=== PATIENT | male | born 1940 | race Caucasian/White ===

== ENCOUNTER 2023-08-03 18:44 | Emergency (ER) | payer OTHER ==
--- OUTSIDE RECORDS SUMMARY | 2023-08-03 18:49 | XMS REPORT | Continuity of Care Document ---
Author Name Unknown Address [address] [place] [address] [facility] Address [address] [place] [address] Care Team Providers Care Supervising Chef Name Role Phone Nan Ybarra MD Primary Care Physician [phone] MOHAN HELM Attending Clinician UnaMAHI Purcell Attending Clinician Unavailable TORSTEN HATHAWAY Attending Clinician Unavailable RUKHSANA KEITA Attending Clinician Unavailab CLAY Lewis Attending Clinician Un available NAN YBARRA Attending Clinician Unavailable HARRIS JARA Attending Clinician Unava ilable [id number] Attending Clinician Unavailable MICKEY MCDONALD Attending Clinician Unavailab le LAB90 Attending Clinician Unavailable ROSITA AU Attending Clinician Unavailable [id number] Attending Clinician Unavailable GERARDO EMANUEL Attending Clinician Unavailable MD PAT Attending Clinician Unavailab NOMAN Flor Attending Clinician Unavailab SHERICE Interiano Attending Clinician Torsten Vidal MD Attending Clinician [phone] [id number] Attending Clinician Unavailable FL4, [id number] Attending Clinician Unavailable 1, Urology Biopsy Machine Attending Clinician Unavailable 2, Urology Procedure Room Attending Clinician Unavailable Rosita Au PA-C Attending Clinician Sujatha DODSON, Noman Attending Clinician [phone] Amada DODSON, Nan Attending Clinician [phone] Celena DODSON, Uli Jha Attending Clinician [phone] 39, HOLTER Attending Clinician Unavailable RODRICK MENDEZ Attending Clinician Unavailable Payers Payer Name Policy Type Policy Number Effective Date Expirati on Date Source [facility] 7 [id number] 2019 00:00:00 Problems Condition Name Condition Details Condition Category Status Onset Date Resolution Date Last Treatment Date Treating Clinician Comments Source Peripheral vascular disease of extremity Peripheral vascular disease of extremity Disease Active 2022-04 1-07 00:00: 00 Kayy Straussold - Externa l Chronic heart failure with preserved ejection fraction (multi HCC) Chronic heart failure with preserved ejection fraction (multi HCC) Disease Active 1-31 00:00: 00 Kayy Kumarybold - Externa l Prostate cancer (multi HCC) Prostate cancer (multi HCC) Disease Active 9-09 00:00: 00 Kayy Kumarybold - Externa l History of basal cell carcinoma of skin History of basal cell carcinoma of skin Disease Active 6- 00:00: 00 Overview: Formattin g of this note might be different from the original. L helical rim Kayy Kumarybold - Externa l Coagulatio n disorder Coagulatio n disorder Disease Active 5-17 00:00: 00 Kayy Sandoval Hx of squamous cell carcinoma Hx of squamous cell carcinoma Disease Active 6 00:00: 00 Overview: Formattin g of this note might be different from the original. 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, partial, right Disease Active 2-03 00:00: 00 Kayy Sandoval - Externa l Allergies, Adverse Reactions, Alerts Allergy Name Allergy Type Status Severity Reaction(s) Onset Date Inactive Date Treating Clinician Comments Source Penicill ins Propensi ty to adverse reaction s Active Hives 09-04 00:00: 00 Kayy Sandoval Penicill ins Propensi ty to adverse reaction s Active Hives 09-04 00:00: 00 Kayy Meehan Externa l Social History Social Habit Start Date Stop Date Quantity Comments Source Sexual orientation 2019-06-29 08:48:57 Heterosexual (finding) Kayy Sandoval - External History of tobacco use Cigarette Smoker Kayy dick - External History SDOH Alcohol Std Drinks Kayy harkins - External History SDOH Alcohol Comment Kayy harley - External Exposure to SARS-CoV-2 (event) Not sure Kayy harkins Gender identity Rachel Sandoval - External Alcohol intake 2023-07-03 00:00:00 2023-07-03 00:00:00 Ex-drinker (finding) Kayy Sandoval - External History of Social function 2022-12-16 00:00:00 2022-12-16 00:00:00 Kayy Sandoval - External Tobacco use and exposure 2022-09-06 00:00:00 2022-09-06 00:00:00 Smokeless tobacco non-user Kayy Sandoval - External History SDOH Alcohol Frequency 2019-05-27 00:00:00 2019-05-27 00:00:00 99 Kayy Sandoval - External History SDOH Alcohol Binge 2019-05-27 00:00:00 2019-05-27 00:00:00 1 Kayy Sandoval - External Sex Assigned At 1940 00:00:00 1940 00:00:00 M Kayy Sandoval - External Smoking Status Start Date Stop Date Source Ex-smoker 2022-09-06 00:00:2022-09-06 00:00:00 Blanca Rajput Medications Ordered Medication Name Filled Medication Name Start Date Stop Date Current Medication? Ordering Clinician Indication Dosage Frequency Signature (SIG) Comments Components Source Aspirin EC 81 MG oral Tablet Delayed Response 07-02 15:56: 37 Yes 81mg Take 1 tablet (81 mg total) by mouth daily. Kayy pedro Midodrine HCl 2.5 MG oral Tablet 07-02 15:56: 37 Yes 2.5mg Take 1 tablet (2.5 mg total) by mouth daily. Kayy pedro Aspirin EC 81 MG oral Tablet Delayed Response 06-22 11:55: 56 Yes 81mg Take 1 tablet (81 mg total) by mouth daily. Kayy pedro Midodrine HCl 2.5 MG oral Tablet 06-22 11:55: 56 Yes 2.5mg Take 1 tablet (2.5 mg total) by mouth daily. Kayy pedro Midodrine HCl 2.5 MG oral Tablet 06-21 14:46: 54 Yes 2.5mg Take 1 tablet (2.5 mg total) by mouth daily. Kayy pedro Aspirin EC 81 MG oral Tablet Delayed Response 06-21 14:07: 45 Yes 81mg Take 1 tablet (81 mg total) by mouth daily. Kayy pedro Aspirin EC 81 MG oral Tablet Delayed Response 06-12 08:53: 05 Yes 81mg Take 1 tablet (81 mg total) by mouth daily. Kayy pedro Clonidine HCl (CATAPRES) 0.1 MG oral Tablet 05-31 00:00: 00 Yes Take one pill daily as needed for SBP above 180. Kayy pedro Midodrine HCl 5 MG oral Tablet 05-15 00:00: 00 06-21 00:00 :00 No 5mg Take 1 tablet (5 mg total) by mouth daily. Kayy pedro Aspirin EC 81 MG oral Tablet Delayed Response 2022-04 14:17: 32 Yes 81mg Take 1 tablet (81 mg total) by mouth daily. Kayy pedro Midodrine HCl 2.5 MG oral Tablet 2022-04 00:00: 00 06-21 00:00 :00 No Take one pill once you wake up every day. Kayy pedro Aspirin EC 81 MG oral Tablet Delayed Response 2022-04 11:18: 02 Yes 81mg Take 1 tablet (81 mg total) by mouth daily. Kayy pedro Fludrocorti sone Acetate 0.1 MG oral Tablet 2022-04 00:00: 00 Yes [id number] .1mg Take 1 tablet (0.1 mg total) by mouth daily. Kayy pedro Aspirin EC 81 MG oral Tablet Delayed Response 12-16 15:45: 36 Yes 81mg Take 1 tablet (81 mg total) by mouth daily. Kayy pedro Aspirin EC 81 MG oral Tablet Delayed Response 12-13 11:09: 22 Yes 81mg Take 1 tablet (81 mg total) by mouth daily. Kayy pedro Furosemide (LASIX) 20 MG oral Tablet 11-09 00:00: 00 Yes Take one tab by mouth daily as needed for swelling Kayy pedro Midodrine HCl 2.5 MG oral Tablet 11-09 00:00: 00 01-25 00:00 :00 No Take one half tab once a day early in the morning Kayy pedro Aspirin EC 81 MG oral Tablet Delayed Response 09-22 11:22: 33 Yes 81mg Take 1 tablet (81 mg total) by mouth daily Kayy pedro CarbidopaDominique evodopa (Sinemet) 25-100 MG oral Tablet 09-22 00:00: 00 Yes [id number] 2{tbl} Take 2 tablets by mouth 2 times daily Kayy pedro Atropine Sulfate 1 % ophthalmic Solution 09-22 00:00: [id number] 1-2 drops twice a day under the tongue for drooling Kayy pedro Aspirin EC 81 MG oral Tablet Delayed Response 5-16 11:19: 30 Yes 81mg Take 1 tablet (81 mg total) by mouth daily Kayy pedro Midodrine HCl 5 MG oral Tablet 4-17 00:00: 00 Yes TAKE ONE TABLET BY MOUTH EVERY MORNING Kayy pedro Rosuvastati n Calcium 20 MG oral Tablet 3-16 00:00: 00 Yes [id number] TAKE ONE TABLET BY MOUTH EVERY DAY Kayy pedro Aspirin EC 81 MG oral Tablet Delayed Response 2-28 11:50: 26 Yes 81mg Take 81 mg by mouth daily Kayy pedro Aspirin EC 81 MG oral Tablet Delayed Response -24 11:01: 42 Yes 81mg Take 81 mg by mouth daily Kayy pedro Carbidopa-L evodopa (Sinemet) 25-100 MG oral Tablet -24 00:00: 00 09-22 00:00 :00 No [id number] 1 tablet PO twice daily Kayy pedro Midodrine HCl 5 MG oral Tablet 2021-04 2-05 00:00: 00 Yes TAKE ONE TABLET BY MOUTH EVERY MORNING Kayy pedro Aspirin EC 81 MG oral Tablet Delayed Response 2021-04 0-25 10:13: 32 Yes 81mg Take 81 mg by mouth daily Kayy pedro Aspirin EC 81 MG oral Tablet Delayed Response -23 10:18: 02 Yes 81mg Take 81 mg by mouth daily Kayy pedro Carbidopa-L evodopa (Sinemet) 25-100 MG oral Tablet -23 00:00: 00 05-17 00:00 :00 No [id number] 1 tablet PO twice daily Kayy pedro Aspirin EC 81 MG oral Tablet Delayed Response -17 10:44: 12 Yes 81mg Take 81 mg by mouth daily Kayy Sandoval Tdap (ADACEL) 5-2-15.5 LF-MCG/0.5 intramuscul ar Suspension -17 00:00: 00 06-22 00:00 :00 No [id number] Administer One Kayy pedro Rosuvastati n Calcium 20 MG oral Tablet 08-25 00:00: 00 Yes [id number] TAKE ONE TABLET BY MOUTH EVERY DAY Kayy pedro Aspirin EC 81 MG oral Tablet Delayed Response 07-13 11:05: 23 Yes 81mg Take 81 mg by mouth daily Kayy Sandoval Carbidopa-Mayela evodopa (Sinemet) 25-100 MG oral Tablet 07-13 00:00: 00 01-14 00:00 :00 No 1 tablet PO twice daily for 10 days, then increase to TID Kayy pedro Midodrine HCl 5 MG oral Tablet 06-23 00:00: 00 Yes 5mg Take 1 tablet (5 mg total) by mouth every morning Kayy epdro Aspirin EC 81 MG oral Tablet Delayed Response 06-22 11:55: 10 Yes 81mg Take 81 mg by mouth daily Kayy Sandoval Aspirin EC 81 MG oral Tablet Delayed Response 2020-04 15:15: 20 Yes 81mg Take 81 mg by mouth daily Kayy Sandoval Midodrine HCl 5 MG oral Tablet 2020-04 00:00: 00 Yes 5mg Take 1 tablet (5 mg total) by mouth 2 times daily Kayy Sandoval Aspirin EC 81 MG oral Tablet Delayed Response 10-22 08:19: 54 Yes 81mg Take 81 mg by mouth Kayy Sandoval Mupirocin (Bactroban) 2 % apply externally Ointment 10-22 00:00: 00 06-22 00:00 :00 No Apply to wound bid x 2 weeks Kayy pedro Triamcinolo ne Acetonide 0.1 % apply externally Cream 09-17 00:00: 00 Yes [id number] Apply topically BID to affected area for no more than 14 days Kayy Sandoval Rosuvastati n Calcium (Crestor) 20 MG oral Tablet 09-17 00:00: 00 Yes [id number] 20mg Take 1 tablet (20 mg total) by mouth daily Kayy Sandoval Zoster Vac Recomb Adjuvanted 50 MCG/0.5ML intramuscul ar Recon Susp 09-17 00:00: 00 03-31 00:00 :00 No [id number] One dose now. Second dose given two to six months AFTER first dose. Kayy Sandoval Midodrine HCl 5 MG oral Tablet 08-24 00:00: 00 Yes TAKE ONE TABLET BY MOUTH TWICE A DAY Kayy Sandoval Immunizations Ordered Immunization Name Filled Immunization Name Date Status Comments Source Influenza Virus Vaccine, Quadrivalent, High Dose, Age 65 And Up 2022-02-15 00:00:00 Completed Kayy Sandoval - External Influenza Virus Vaccine, Quadrivalent, High Dose, Age 65 And Up 2022-02-15 00:00:00 Completed Kayy Setorin - External Influenza Virus Vaccine, Quadrivalent, High Dose, Age 65 And Up 2022-02-15 00:00:00 Completed Kayy Sandoval - External Influenza Virus Vaccine, Quadrivalent, High Dose, Age 65 And Up 2022-02-15 00:00:00 Completed Kayy Kumarybold - External Influenza Virus Vaccine, Quadrivalent, High Dose, Age 65 And Up 2022-02-15 00:00:00 Completed Kayy Sandoval - External Influenza Virus Vaccine, Quadrivalent, High Dose, Age 65 And Up 2022-02-15 00:00:00 Completed Kayy Seybold - External Influenza Virus Vaccine, Quadrivalent, High Dose, Age 65 And Up 2022-02-15 00:00:00 Completed Kayy Sandoval - External Covid-19 Vaccine (Corindus), Mrna-lnp, King Protein, Pf, 30mcg/0.3ml,IM 2021-04-21 00:00:00 Completed Kayy Sehollyold Covid-19 Vaccine (Corindus), Mrna-lnp, King Protein, Pf, 30mcg/0.3ml,IM 2021-04-21 00:00:00 Completed Kayy Seybold Covid-19 Vaccine (Corindus), Mrna-lnp, King Protein, Pf, 30mcg/0.3ml,IM 2021-04-21 00:00:00 Completed Kayy Sehollyold - External Covid-19 Vaccine (Corindus), Mrna-lnp, King Protein, Pf, 30mcg/0.3ml,IM 2021-04-21 00:00:00 Completed Kayy Seybold - External Covid-19 Vaccine (Pfizer), Mrna-lnp, King Protein, Pf, 30mcg/0.3ml,IM 2021-04-21 00:00:00 Completed Kayy Seybold - External Covid-19 Vaccine (Pfizer), Mrna-lnp, King Protein, Pf, 30mcg/0.3ml,IM 2021-04-21 00:00:00 Completed Kayy Seybold - External Covid-19 Vaccine (Pfizer), Mrna-lnp, King Protein, Pf, 30mcg/0.3ml,IM 2021-04-21 00:00:00 Completed Kayy Seybold - External Covid-19 Vaccine (Pfizer), Mrna-lnp, King Protein, Pf, 30mcg/0.3ml,IM 2021-04-21 00:00:00 Completed Kayy Seybold - External Covid-19 Vaccine (Pfizer), Mrna-lnp, King Protein, Pf, 30mcg/0.3ml,IM 2021-04-21 00:00:00 Completed Kayy Seybold - External Covid-19 Vaccine (Pfizer), Mrna-lnp, King Protein, Pf, 30mcg/0.3ml,IM 2021-04-21 00:00:00 Completed Kayy Seybold - External Covid-19 Vaccine (Pfizer), Mrna-lnp, King Protein, Pf, 30mcg/0.3ml,IM 2021-04-21 00:00:00 Completed Kayy Seybold Shingles IM (Shingrix) 2020-12-15 00:00:00 Completed Kayy Seybold Shingles IM (Shingrix) 2020-12-15 00:00:00 Completed Kayy Seybold Shingles IM (Shingrix) 2020-12-15 00:00:00 Completed Kayy Seybold - External Shingles IM (Shingrix) 2020-12-15 00:00:00 Completed Kayy Seybold - External Shingles IM (Shingrix) 2020-12-15 00:00:00 Completed Akyy Seybold - External Shingles IM (Shingrix) 2020-12-15 00:00:00 Completed Kayy Seybold - External Shingles IM (Shingrix) 2020-12-15 00:00:00 Completed Kayy Seybold - External Shingles IM (Shingrix) 2020-12-15 00:00:00 Completed Kayy Seybold - External Shingles IM (Shingrix) 2020-12-15 00:00:00 Completed Kayy Seybold - External Shingles IM (Shingrix) 2020-12-15 00:00:00 Completed Kayy Seybold Shingles IM (Shingrix) 2020-12-15 00:00:00 Completed Kayy Seybold - External Shingles IM (Shingrix) 2020-12-15 00:00:00 Completed Kayy Seybold Shingles IM (Shingrix) 2020-12-15 00:00:00 Completed Kayy Seybold Shingles IM (Shingrix) 2020-10-06 00:00:00 Completed Kayy Seybold Shingles IM (Shingrix) 2020-10-06 00:00:00 Completed Kayy Seybold Shingles IM (Shingrix) 2020-10-06 00:00:00 Completed Kayy Seybold - External Shingles IM (Shingrix) 2020-10-06 00:00:00 Completed Kayy Seybold - External Shingles IM (Shingrix) 2020-10-06 00:00:00 Completed Kayy Seybold - External Shingles IM (Shingrix) 2020-10-06 00:00:00 Completed Kayy Seybold - External Shingles IM (Shingrix) 2020-10-06 00:00:00 Completed Kayy Seybold - External Shingles IM (Shingrix) 2020-10-06 00:00:00 Completed Kayy Seybold - External Shingles IM (Shingrix) 2020-10-06 00:00:00 Completed Kayy Seybold - External Shingles IM (Shingrix) 2020-10-06 00:00:00 Completed Kayy Seybold Shingles IM (Shingrix) 2020-10-06 00:00:00 Completed Kayy Seybold - External Shingles IM (Shingrix) 2020-10-06 00:00:00 Completed Kayy Seybold Shingles IM (Shingrix) 2020-10-06 00:00:00 Completed Kayy Seybold Pneumococcal Vaccine, Polysaccharide 2020-09-17 00:00:00 Completed Kayy Seybold Pneumococcal Vaccine, Polysaccharide 2020-09-17 00:00:00 Completed Kayy Seybold Pneumococcal Vaccine, Polysaccharide 2020-09-17 00:00:00 Completed Kayy Seybold - External Pneumococcal Vaccine, Polysaccharide 2020-09-17 00:00:00 Completed Kayy Seybold - External Pneumococcal Vaccine, Polysaccharide 2020-09-17 00:00:00 Completed Kayy Seybold - External Pneumococcal Vaccine, Polysaccharide 2020-09-17 00:00:00 Completed Kayy Seybold - External Pneumococcal Vaccine, Polysaccharide 2020-09-17 00:00:00 Completed Kayy Seybold - External Pneumococcal Vaccine, Polysaccharide 2020-09-17 00:00:00 Completed Kayy Seybold - External Pneumococcal Vaccine, Polysaccharide 2020-09-17 00:00:00 Completed Kayy Seybold Pneumococcal Vaccine, Polysaccharide 2020-09-17 00:00:00 Completed Kayy Seybold - External Pneumococcal Vaccine, Polysaccharide 2020-09-17 00:00:00 Completed Kayy Seybold - External Pneumococcal Vaccine, Polysaccharide 2020-09-17 00:00:00 Completed Kayy Seybold Pneumococcal Vaccine, Polysaccharide 2020-09-17 00:00:00 Completed Kayy Seybold Covid-19 Vaccine Moderna (Spikevax), Mrna-lnp, King Protein, Pf 2020-07-23 00:00:00 Completed Kayy Seybold Covid-19 Vaccine Moderna (Spikevax), Mrna-lnp, King Protein, Pf 2020-07-23 00:00:00 Completed Kayy Seybold Covid-19 Vaccine Moderna (Spikevax), Mrna-lnp, King Protein, Pf 2020-07-23 00:00:00 Completed Kayy Seybold - External Covid-19 Vaccine Moderna (Spikevax), Mrna-lnp, King Protein, Pf 2020-07-23 00:00:00 Completed Kayy Seybold - External Covid-19 Vaccine Moderna (Spikevax), Mrna-lnp, King Protein, Pf 2020-07-23 00:00:00 Completed Kayy Seybold - External Covid-19 Vaccine Moderna (Spikevax), Mrna-lnp, King Protein, Pf 2020-07-23 00:00:00 Completed Kayy Seybold - External Covid-19 Vaccine Moderna (Spikevax), Mrna-lnp, King Protein, Pf 2020-07-23 00:00:00 Completed Kayy Seybold - External Covid-19 Vaccine Moderna (Spikevax), Mrna-lnp, King Protein, Pf 2020-07-23 00:00:00 Completed Kayy Seybold - External Covid-19 Vaccine (Moderna), Mrna-lnp, King Protein, Pf, 100 Mcg/0.5ml,IM 2020-07-23 00:00:00 Completed Kayy Seybold Covid-19 Vaccine Moderna (Spikevax), Mrna-lnp, King Protein, Pf 2020-07-23 00:00:00 Completed Kayy Seybold - External Covid-19 Vaccine Moderna (Spikevax), Mrna-lnp, King Protein, Pf 2020-07-23 00:00:00 Completed Kayy Seybold - External Covid-19 Vaccine (Moderna), Mrna-lnp, King Protein, Pf, 100 Mcg/0.5ml,IM 2020-07-23 00:00:00 Completed Kayy Seybold Covid-19 Vaccine Moderna (Spikevax), Mrna-lnp, King Protein, Pf 2020-07-23 00:00:00 Completed Kayy Seybold Covid-19 Vaccine Moderna (Spikevax), Mrna-lnp, King Protein, Pf 2020-06-25 00:00:00 Completed Kayy Seybold Covid-19 Vaccine Moderna (Spikevax), Mrna-lnp, King Protein, Pf 2020-06-25 00:00:00 Completed Kayy Seybold Covid-19 Vaccine Moderna (Spikevax), Mrna-lnp, King Protein, Pf 2020-06-25 00:00:00 Completed Kayy Seybold - External Covid-19 Vaccine Moderna (Spikevax), Mrna-lnp, King Protein, Pf 2020-06-25 00:00:00 Completed Kayy Seybold - External Covid-19 Vaccine Moderna (Spikevax), Mrna-lnp, King Protein, Pf 2020-06-25 00:00:00 Completed Kayy Seybold - External Covid-19 Vaccine Moderna (Spikevax), Mrna-lnp, King Protein, Pf 2020-06-25 00:00:00 Completed Kayy Seybold - External Covid-19 Vaccine Moderna (Spikevax), Mrna-lnp, King Protein, Pf 2020-06-25 00:00:00 Completed Kayy Seybold - External Covid-19 Vaccine Moderna (Spikevax), Mrna-lnp, King Protein, Pf 2020-06-25 00:00:00 Completed Kayy Seybold - External Covid-19 Vaccine (Moderna), Mrna-lnp, King Protein, Pf, 100 Mcg/0.5ml,IM 2020-06-25 00:00:00 Completed Kayy Seybold Covid-19 Vaccine Moderna (Spikevax), Mrna-lnp, King Protein, Pf 2020-06-25 00:00:00 Completed Kayy Seybold - External Covid-19 Vaccine Moderna (Spikevax), Mrna-lnp, King Protein, Pf 2020-06-25 00:00:00 Completed Kayy Seybold - External Covid-19 Vaccine (Moderna), Mrna-lnp, King Protein, Pf, 100 Mcg/0.5ml,IM 2020-06-25 00:00:00 Completed Kayy Seybold Covid-19 Vaccine Moderna (Spikevax), Mrna-lnp, King Protein, Pf 2020-06-25 00:00:00 Completed Kayy Seybold Influenza Virus Vaccine, Quadrivalent, High Dose, Age 65 And Up 2020-01-20 00:00:00 Completed Kayy Seybold Influenza Virus Vaccine, Quadrivalent, High Dose, Age 65 And Up 2020-01-20 00:00:00 Completed Kayy Seybold Influenza Virus Vaccine, Quadrivalent, High Dose, Age 65 And Up 2020-01-20 00:00:00 Completed Kayy Seybold - External Influenza Virus Vaccine, Quadrivalent, High Dose, Age 65 And Up 2020-01-20 00:00:00 Completed Kayy Seybold - External Influenza Virus Vaccine, Quadrivalent, High Dose, Age 65 And Up 2020-01-20 00:00:00 Completed Kayy Kumarybold - External Influenza Virus Vaccine, Quadrivalent, High Dose, Age 65 And Up 2020-01-20 00:00:00 Completed Kayy Seybold - External Influenza Virus Vaccine, Quadrivalent, High Dose, Age 65 And Up 2020-01-20 00:00:00 Completed Kayy Seybold - External Influenza Virus Vaccine, Quadrivalent, High Dose, Age 65 And Up 2020-01-20 00:00:00 Completed Kayy Seybold - External Influenza Virus Vaccine, Quadrivalent, High Dose, Age 65 And Up 2020-01-20 00:00:00 Completed Kayy Kumarybold Influenza Virus Vaccine, Quadrivalent, High Dose, Age 65 And Up 2020-01-20 00:00:00 Completed Kayy Kumarybold - External Influenza Virus Vaccine, Quadrivalent, High Dose, Age 65 And Up 2020-01-20 00:00:00 Completed Kayy Kumarybold - External Influenza Virus Vaccine, Quadrivalent, High Dose, Age 65 And Up 2020-01-20 00:00:00 Completed Kayy Seybold Influenza Virus Vaccine, Quadrivalent, High Dose, Age 65 And Up 2020-01-20 00:00:00 Completed Kayyflorence Straussold Influenza Virus Vaccine, Quadrivalent, High Dose, Age 65 And Up Unknown Completed Kayy moreno - External Covid-19 Vaccine Moderna (Spikevax), Mrna-lnp, King Protein, Pf Unknown [facility] Moderna (Spikevax), Mrna-lnp, King Protein, Pf Unknown Completed Kayy Sandoval - External Pneumococcal Vaccine, Polysaccharide Unknown Completed Kayy Tompkins d - External Shingles IM (Shingrix) Unknown Completed Kayy Sandoval - External Shingles IM (Shingrix) Unknown Completed Kayy Sandoval - External Covid-19 Vaccine (Pfizer), Mrna-lnp, King Protein, Pf, 30mcg/0.3ml,IM Unknown [facility], Quadrivalent, High Dose, Age 65 And Up Unknown Completed [facility] eybold - External Influenza Virus Vaccine, Quadrivalent, High Dose, Age 65 And Up Unknown [facility] Moderna (Spikevax), Mrna-lnp, King Protein, Pf Unknown Completed [facility] - External Covid-19 Vaccine Moderna (Spikevax), Mrna-lnp, King Protein, Pf Unknown Completed [facility] - External Pneumococcal Vaccine, Polysaccharide Unknown [facility] (Shingrix) Unknown Completed [facility] - External Covid-19 Vaccine (Pfizer), Mrna-lnp, King Protein, Pf, 30mcg/0.3ml,IM Unknown [facility] Influenza Virus Vaccine, Quadrivalent, High Dose, Age 65 And Up Unknown [facility] Influenza Virus Vaccine, Quadrivalent, High Dose, Age 65 And Up Unknown Completed [facility] External Covid-19 Vaccine Moderna (Spikevax), Mrna-lnp, King Protein, Pf Unknown Completed [facility] - External Covid-19 Vaccine Moderna (Spikevax), Mrna-lnp, King Protein, Pf Unknown Completed [facility] - External Pneumococcal Vaccine, Polysaccharide Unknown [facility] ([facility]hingrix[facility] Unknown Completed [facility] - External Covid-19 Vaccine (Pfizer), Mrna-lnp, King Protein, Pf, 30mcg/0.3ml,IM Unknown [facility] Influenza Virus Vaccine, Quadrivalent, High Dose, Age 65 And Up Unknown Completed [facility] eybold - External Influenza Virus Vaccine, Quadrivalent, High Dose, Age 65 And Up Unknown Completed [facility] - External Covid-19 Vaccine Moderna (Spikevax), Mrna-lnp, King Protein, Pf Unknown Completed [facility] - External Covid-19 Vaccine Moderna (Spikevax), Mrna-lnp, King Protein, Pf Unknown Completed [facility] - External Pneumococcal Vaccine, Polysaccharide Unknown [facility] (Shingrix) Unknown Completed [facility] Seybold - External Shingles IM (Shingrix) Unknown Completed [facility] - External Covid-19 Vaccine (Pfizer), Mrna-lnp, King Protein, Pf, 30mcg/0.3ml,IM Unknown Completed [facility] - External Influenza Virus Vaccine, Quadrivalent, High Dose, Age 65 And Up Unknown Completed [facility] eybold - External Influenza Virus Vaccine, Quadrivalent, High Dose, Age 65 And Up Unknown Com[facility] [facility] - External Covid-19 Vaccine Moderna (Spikevax), Mrna-lnp, King Protein, Pf Unknown Completed [facility] External Covid-19 Vaccine Moderna (Spikevax), Mrna-lnp, King Protein, Pf Unknown Completed [facility] - External Pneumococcal Vaccine, Polysaccharide Unknown [facility] (Shingrix) Unknown Completed [facility] - External Covid-19 Vaccine (Pfizer), Mrna-lnp, King Protein, Pf, 30mcg/0.3ml,IM Unknown Completed [facility] - External Influenza Virus Vaccine, Quadrivalent, High Dose, Age 65 And Up Unknown Completed [facility] - External Influenza Virus Vaccine, Quadrivalent, High Dose, Age 65 And Up Unknown [facility] Vaccine Moderna (Spikevax), Mrna-lnp, King Protein, Pf Unknown Completed [facility] - External Covid-19 Vaccine Moderna (Spikevax), Mrna-lnp, King Protein, Pf Unknown Completed [facility] - External Pneumococcal Vaccine, Polysaccharide Unknown [facility] Shingles [facility] (Shingrix) Unknown Completed [facility] - External Shingles IM (Shingrix) Unknown Completed [facility] - External Covid-19 Vaccine (Pfizer), Mrna-lnp, King Protein, Pf, 30mcg/0.3ml,IM Unknown Completed [facility] - External Influenza Virus Vaccine, Quadrivalent, High Dose, Age 65 And Up Unknown Completed Kayy Najera [facility] - External Vital Signs Vital Name Observation Time Observation Value Comments S juliana Systolic blood pressure 2023-07-03 21:34:00 190 mm[Hg] Kayy [facility] - External Diastolic blood pressure 2023-07-03 21:34:00 100 mm[Hg] Kayy Seybo ld - External Heart rate 2023-07-03 20:56:00 64 /min Kelse y [facility] - External Body temperature 2023-07-03 20:56:00 36.44 Sana Kayy [facility] - External Respiratory rate 2023-07-03 20:56:00 16 /min Kayy [facility] - External Body height 2023-07-03 20:56:00 172.7 cm Rachel ey [facility] - External Oxygen saturation in Arterial blood by Pulse oximetry 2023-07-03 20:56:00 96 /min Kayy Seybo ld - External Systolic blood pressure 2023-06-23 17:56:00 138 mm[Hg] Kayy Seybo ld - External Diastolic blood pressure 2023-06-23 17:56:00 88 mm[Hg] Kayy Seybo ld - External Heart rate 2023-06-23 17:56:00 56 /min Kgse y [facility] - External Body temperature 2023-06-23 17:56:00 36.72 Sana Kayy [facility] - External Respiratory rate 2023-06-23 17:56:00 17 /min Kayy [facility] - External Body height 2023-06-23 17:56:00 172.7 cm Rachel ey [facility] - External Body weight 2023-06-23 17:56:00 72.576 kg Rachel ey [facility] - External BMI 2023-06-23 17:56:00 24.33 kg/m2 Rachel ey [facility] - External Systolic blood pressure 2023-06-21 20:02:00 174 mm[Hg] Kayy Seybo ld - External Diastolic blood pressure 2023-06-21 20:02:00 92 mm[Hg] Kayy Seybo ld - External Heart rate 2023-06-21 20:02:00 66 /min Kelse y [facility] - External Body temperature 2023-06-21 20:02:00 36.44 Sana Kayy [facility] - External Respiratory rate 2023-06-21 20:02:00 17 /min Kayy [facility] - External Body height 2023-06-21 20:02:00 172.7 cm Rachel ey [facility] - External Oxygen saturation in Arterial blood by Pulse oximetry 2023-06-21 20:02:00 95 /min Kayy Seybo ld - External Systolic blood pressure 2023-06-12 14:53:00 162 mm[Hg] Kayy Seybo ld - External Diastolic blood pressure 2023-06-12 14:53:00 98 mm[Hg] Kayy Seybo ld - External Heart rate 2023-06-12 14:53:00 61 /min Kelse y [facility] - External Body temperature 2023-06-12 14:53:00 36.56 Sana Kayy [facility] - External Respiratory rate 2023-06-12 14:53:00 18 /min Kayy [facility] - External Body height 2023-06-12 14:53:00 172.7 cm Rachel ey [facility] - External Body weight 2023-06-12 14:53:00 72.576 kg Rachel ey [facility] - External BMI 2023-06-12 14:53:00 24.33 kg/m2 Rachel ey [facility] - External Systolic blood pressure 2023-04-05 20:42:00 202 mm[Hg] Kayy Seybo ld - External Diastolic blood pressure 2023-04-05 20:42:00 104 mm[Hg] Kayy Seybo ld - External Heart rate 2023-04-05 20:12:00 62 /min Kelse y [facility] - External Body temperature 2023-04-05 20:12:00 36.5 Sana Kayy [facility] - External Respiratory rate 2023-04-05 20:12:00 15 /min Kayy [facility] - External Body height 2023-04-05 20:12:00 172.7 cm Rachel ey [facility] - External Body weight 2023-04-05 20:12:00 72.576 kg Rachel ey [facility] - External BMI 2023-04-05 20:12:00 24.33 kg/m2 Rachel ey [facility] - External Oxygen saturation in Arterial blood by Pulse oximetry 2023-04-05 20:12:00 97 /min Kayy Seybo ld - External Systolic blood pressure 2022-12-16 20:47:00 142 mm[Hg] Kayy Seybo ld - External Diastolic blood pressure 2022-12-16 20:47:00 78 mm[Hg] Kayy Seybo ld - External Heart rate 2022-12-16 20:47:00 68 /min Kelse y [facility] - External Body temperature 2022-12-16 20:47:00 36.78 Sana Kayy [facility] - External Respiratory rate 2022-12-16 20:47:00 18 /min Kayy [facility] - External Body height 2022-12-16 20:47:00 172.7 cm Rachel ey [facility] - External Body weight 2022-12-16 20:47:00 73.936 kg Rachel ey [facility] - External BMI 2022-12-16 20:47:00 24.78 kg/m2 Rachel ey [facility] - External Systolic blood pressure 2022-12-13 16:09:00 199 mm[Hg] Kayy Seybo ld - External Diastolic blood pressure 2022-12-13 16:09:00 103 mm[Hg] Kayy Seybo ld - External Heart rate 2022-12-13 16:09:00 63 /min Kelse y [facility] - External Body temperature 2022-12-13 16:09:00 36.17 Sana Kayy [facility] - External Respiratory rate 2022-12-13 16:09:00 18 /min Kayy [facility] - External Body height 2022-12-13 16:09:00 172.7 cm Rachel ey [facility] - External Body weight 2022-12-13 16:09:00 73.936 kg Rachel ey [facility] - External BMI 2022-12-13 16:09:00 24.78 kg/m2 Rachel ey [facility] - External Systolic blood pressure 2022-09-22 16:37:00 189 mm[Hg] Kayy [facility] - External Diastolic blood pressure 2022-09-22 16:37:00 98 mm[Hg] Kayy [facility] - External Heart rate 2022-09-22 16:24:00 64 /min Kelse y [facility] - External Body temperature 2022-09-22 16:21:00 36.28 Sana Kayy [facility] - External Respiratory rate 2022-09-22 16:21:00 21 /min Kayy [facility] - External Body height 2022-09-22 16:21:00 172.7 cm Rachel ey [facility] - External Systolic blood pressure 2022-09-06 16:19:00 186 mm[Hg] Kayy [facility] ld - External Diastolic blood pressure 2022-09-06 16:19:00 99 mm[Hg] Kayy [facility] ld - External Heart rate 2022-09-06 16:19:00 61 /min Kelse y [facility] - External Body temperature 2022-09-06 16:19:00 36.83 Sana Kayy [facility] - External Respiratory rate 2022-09-06 16:19:00 16 /min Kayy [facility] - External Body height 2022-09-06 16:19:00 172.7 cm Rachel ey [facility] - External Body weight 2022-09-06 16:19:00 72.576 kg wheelchair Rachel ey [facility] - External BMI 2022-09-06 16:19:00 24.33 kg/m2 Rachel ey [facility] - External Systolic blood pressure 2022-06-21 17:50:00 170 mm[Hg] Kayy [facility] ld - External Diastolic blood pressure 2022-06-21 17:50:00 89 mm[Hg] Kayy [facility] ld - External Heart rate 2022-06-21 17:50:00 69 /min Kelse y [facility] - External Body temperature 2022-06-21 17:50:00 36.72 Sana Kayy [facility] - External Respiratory rate 2022-06-21 17:50:00 16 /min Kayy [facility] - External Body height 2022-06-21 17:50:00 172.7 cm Rachel ey [facility] - External Body weight 2022-06-21 17:50:00 72.576 kg Rachel ey [facility] - External BMI 2022-06-21 17:50:00 24.33 kg/m2 Rachel ey [facility] - External Systolic blood pressure 2022-05-17 17:01:00 201 mm[Hg] Kayy [facility] ld - External Diastolic blood pressure 2022-05-17 17:01:00 99 mm[Hg] Kayy [facility] ld - External Heart rate 2022-05-17 17:01:00 64 /min Kelse y [facility] - External Body temperature 2022-05-17 17:01:00 36.94 Sana Kayy [facility] - External Respiratory rate 2022-05-17 17:01:00 16 /min Kayy [facility] - External Body height 2022-05-17 17:01:00 172.7 cm Rachel ey [facility] - External Body weight 2022-05-17 17:01:00 73.483 kg Rachel ey [facility] - External BMI 2022-05-17 17:01:00 24.63 kg/m2 Rachel ey [facility] - External Systolic blood pressure 2022-02-15 15:17:00 166 mm[Hg] Kayy [facility] ld - External Diastolic blood pressure 2022-02-15 15:17:00 94 mm[Hg] Kayy [facility] - External Heart rate 2022-02-15 15:17:00 64 /min Kelse y [facility] - External Body temperature 2022-02-15 15:17:00 36.28 Sana Kayy [facility] - External Respiratory rate 2022-02-15 15:17:00 16 /min Kayy [facility] - External Body height 2022-02-15 15:17:00 172.7 cm Rachel ey [facility] - External Body weight 2022-02-15 15:17:00 71.85 kg Rachel ey [facility] - External BMI 2022-02-15 15:17:00 24.08 kg/m2 Rachel ey [facility] - External Oxygen saturation in Arterial blood by Pulse oximetry 2022-02-15 15:17:00 98 /min Kayy [facility] - External Systolic blood pressure 2022-01-14 15:22:00 152 mm[Hg] Kayy [facility] - External Diastolic blood pressure 2022-01-14 15:22:00 89 mm[Hg] Kayy [facility] - External Heart rate 2022-01-14 15:22:00 64 /min Kelse y [facility] - External Body temperature 2022-01-14 15:18:00 36.39 Sana Kayy [facility] - External Respiratory rate 2022-01-14 15:18:00 18 /min Kayy [facility] - External Body height 2022-01-14 15:18:00 172.7 cm Rachel ey [facility] - External Body weight 2022-01-14 15:18:00 73.483 kg Rachel ey [facility] - External BMI 2022-01-14 15:18:00 24.63 kg/m2 Rachel ey [facility] - External Systolic blood pressure 2021-09-07 15:43:00 112 mm[Hg] Kayy Seybo ld Diastolic blood pressure 2021-09-07 15:43:00 72 mm[Hg] Kayy Seybo ld Heart rate 2021-09-07 15:43:00 63 /min Kelse y [facility] Body temperature 2021-09-07 15:43:00 36.67 Sana Kayy [facility] Respiratory rate 2021-09-07 15:43:00 12 /min Kayy [facility] Body height 2021-09-07 15:43:00 172.7 cm Rachel ey [facility] Body weight 2021-09-07 15:43:00 68.947 kg Rachel ey [facility] BMI 2021-09-07 15:43:00 23.11 kg/m2 Rachel ey [facility] Oxygen saturation in Arterial blood by Pulse oximetry 2021-09-07 15:43:00 97 /min Kayy Seybo ld Systolic blood pressure 2021-07-13 16:03:00 193 mm[Hg] Kayy Sey[facility] ld Diastolic blood pressure 2021-07-13 16:03:00 92 mm[Hg] Kayy Seybo ld Heart rate 2021-07-13 16:03:00 67 /min Kelse y [facility] Body temperature 2021-07-13 16:03:00 36.83 Sana Kayy [facility] Respiratory rate 2021-07-13 16:03:00 21 /min Kayy [facility] Body height 2021-07-13 16:03:00 172.7 cm Rachel ey [facility] Body weight 2021-07-13 16:03:00 73.936 kg Rachel ey [facility] BMI 2021-07-13 16:03:00 24.78 kg/m2 Rachel ey [facility] Systolic blood pressure 2021-06-22 17:53:00 140 mm[Hg] Kayy Seybo ld Diastolic blood pressure 2021-06-22 17:53:00 68 mm[Hg] Kayy Seybo ld Heart rate 2021-06-22 17:53:00 63 /min Kelse y [facility] Body temperature 2021-06-22 17:53:00 36.72 Sana Kayy [facility] Respiratory rate 2021-06-22 17:53:00 16 /min Kayy Kumarybold Body height 2021-06-22 17:53:00 172.7 cm Rachel ey [facility] Body weight 2021-06-22 17:53:00 70.308 kg Rachel ey [facility] BMI 2021-06-22 17:53:00 23.57 kg/m2 Rachel joceline [facility] Procedures Procedure Date / Time Performed Performing Clinicia n Source SACRUM/COCCYX 2022-02-15 16:19:10 Mickey Mcdonald [facility] - External QUANTAFLO 2022-02-15 15:29:13 Mickey Mcdonald [facility] - External Encounters Start Date/Time End Date/Time Encounter Type Admission Type Attending [facility] Care Department Encounter ID Source 2023-11-29 10:25:00 2023-11-29 10:25:00 Outpatient MOHAN HELM [id number] Kayy [facility] 2023-09-25 11:00:00 2023-09-25 11:00:00 Outpatient MAHI GUAMAN [id number] Kayy [facility] 2023-08-22 10:20:00 2023-08-22 10:20:00 Outpatient TORSTEN HATHAWAY [id number] Kayy [facility] 2023-07-27 15:30:00 2023-07-27 15:30:00 Outpatient KAYY CHÁVEZ [id number] Kayy Seybm[facility]elin 2023-07-14 08:00:00 2023-07-14 08:00:00 Outpatient [facility]Y [facility]VEZ [id number] [facility]23-07-14 00:00:00 2023-07-14 00:00:00 Outpatient RUKHSANA KEITA [id number] [facility] 2023-07-13 09:45:00 2023-07-13 09:45:00 Outpatient DARIACLAY Egan KAYY CHÁVEZ [id number] [facility] 2023-07-12 00:00:00 2023-07-12 00:00:00 Outpatient NAN YBARRA KAYY CHÁVEZ [id number] [facility] 2023-07-11 00:00:00 2023-07-11 00:00:00 Outpatient KAYY CHÁVEZ [id number] [facility] 2023-07-07 00:00:00 2023-07-07 00:00:00 [id number] [facility]-03 15:30:00 2023-07-03 15:30:00 Outpatient HARRIS JARA [id number] [facility] 2023-06-23 12:55:00 2023-06-23 12:55:00 Outpatient LAB39 KAYY CHÁVEZ [id number] [facility] 2023-06-23 11:40:00 2023-06-23 11:40:00 Outpatient TORSTEN HATHAWAY [id number] [facility] 2023-06-21 14:00:00 2023-06-21 14:00:00 Outpatient MICKEY MCDONALD [id number] [facility] 2023-06-15 11:15:00 2023-06-15 11:15:00 Outpatient TANMICKEY OBANDO [id number] [facility] 2023-06-15 00:00:00 2023-06-15 00:00:00 Outpatient RUKHSANA KEITA [id number] [facility] 2023-06-13 10:40:00 2023-06-13 10:40:00 Outpatient LAB90 KAYY CHÁVEZ [id number] [facility] 2023-06-12 09:00:00 2023-06-12 09:00:00 Outpatient RUKHSANA KEITA KAYY CHÁVEZ [id number] Kay[facility] 2023-06-08 14:55:00 2023-06-08 14:55:00 Outpatient LAB90 KAYY CHÁVEZ [id number] [facility] 2023-05-31 09:55:00 2023-05-31 09:55:00 Outpatient MOHAN HELM [id number] Kay[facility] 2023-04-25 00:00:00 2023-04-25 00:00:00 Outpatient ROSITA AU [id number] Kayy [facility] 2023-04-25 00:00:00 2023-04-25 00:00:00 Outpatient KAYY CHÁVEZ [id number] Kay[facility] 2023-04-14 00:00:00 2023-04-14 00:00:00 Outpatient ROSITA AU [id number] [facility] 2023-04-05 14:00:00 2023-04-05 14:00:00 [facility]AL[id number] [facility]23-[facility] 00:00:00 2023-03-31 00:00:00 Outpatient KAYY CHÁVEZ [id number] [facility] 2023-03-29 10:15:00 2023-03-29 10:15:00 Outpatient [facility]CDONALD [id number] [facility] 2023-03-13 00:00:00 2023-03-13 00:00:00 Outpatient ROSITA AU [id number] [facility] 2023-03-02 00:00:00 2023-03-02 00:00:00 [facility] [id number] [facility]-28 13:30:00 2023-02-28 13:30:00 Outpatient TRED47 KAYY CHÁVEZ [id number] [facility] 2023-02-28 10:25:00 2023-02-28 10:25:00 Outpatient MOHAN HELM [id number] [facility] 2023-02-28 00:00:00 2023-02-28 00:00:00 Outpatient MOHAN HELM KAYY CHÁVEZ [id number] [facility] 2023-02-24 00:00:00 2023-02-24 00:00:00 Outpatient MAHI GUAMAN KAYY CHÁVEZ [id number] [facility] 2023-02-21 00:00:00 2023-02-21 00:00:00 Outpatient MAHI GUAMAN KAYY CHÁVEZ [id number] [facility] 2023-02-21 00:00:00 2023-02-21 00:00:00 Outpatient MAHI GUAMAN KAYY CHÁVEZ [id number] [facility] 2023-02-08 00:00:00 2023-02-08 00:00:00 Outpatient KAYY CHÁVEZ [id number] [facility] 2023-02-08 00:00:00 2023-02-08 00:00:00 Outpatient MAHI GUAMAN KAYY CHÁVEZ [id number] [facility] 2023-01-25 11:30:00 2023-01-25 11:30:00 Outpatient MAHI GUAMAN KAYY [facility]VEZ [id number] [facility] 2022-12-22 00:00:00 2022-12-22 00:00:00 Outpatient KAYY CHÁVEZ [id number] [facility] 2022-12-16 15:40:00 2022-12-16 15:40:00 Outpatient TORSTEN HATHAWAY [id number] [facility] 2022-12-14 00:00:00 2022-12-14 00:00:00 Outpatient ROSITA AU [id number] [facility] 2022-12-13 11:00:00 2022-12-13 11:00:00 Outpatient ROSITA AU [id number] [facility] 2022-12-08 14:35:00 2022-12-08 14:35:00 Outpatient LABParisa CHÁVEZ [id number] [facility] 2022-11-09 09:40:00 2022-11-09 09:40:00 Outpatient MOHAN HELM KAYY CHÁVEZ [id number] Kay[facility] 2022-11-08 14:40:00 2022-11-08 14:40:00 Outpatient RIVASTORSTEN Talbot KAYY CHÁVEZ [id number] Kay[facility] 2022-11-01 11:30:00 2022-11-01 11:30:00 Outpatient RIVASTORSTEN Talbot KAYY CHÁVEZ [id number] Kay[facility] 2022-10-10 00:00:00 2022-10-10 00:00:00 Outpatient RIVAS TORSTEN CHÁVEZ [id number] [facility] 2022-09-22 11:30:00 2022-09-22 11:30:00 Outpatient MAHI GUAMAN [id number] [facility] 2022-09-06 11:00:00 2022-09-06 11:00:00 Outpatient ROSITA AU [id number] [facility] 2022-08-07 00:00:00 2022-08-07 00:00:00 Outpatient VOLODYMYR MOHAN CHÁVEZ [id number] [facility] 2022-07-07 00:00:00 2022-07-07 00:00:00 Outpatient AMADANAN KAYY CHÁVEZ [id number] [facility] 2022-06-21 11:40:00 2022-06-21 11:40:00 Outpatient TORSTEN HATHAWAY KAYY CHÁVEZ [id number] [facility] 2022-06-16 14:40:00 2022-06-16 14:40:00 Outpatient LAB90 KAYY CHÁVEZ [id number] [facility] 2022-05-24 15:00:00 2022-05-24 15:00:00 Outpatient GERARDO EMANUEL [id number] [facility] 2022-05-20 13:40:00 2022-05-20 13:40:00 Outpatient MOHAN HELM [id number] [facility] 2022-05-18 00:00:00 2022-05-18 00:00:00 Outpatient MOHAN HELM KAYY [id number] [facility] 2022-05-18 00:00:00 2022-05-18 00:00:00 Outpatient MD KAYY GOMEZ [id number] [facility] 2022-05-17 11:00:00 2022-05-17 11:00:00 Outpatient ROSITA AU [id number] [facility] 2022-04-20 10:10:00 2022-04-20 10:10:00 Outpatient MOHAN HELM KAYY CHÁVEZ [id number] [facility] 2022-04-07 14:30:00 2022-04-07 14:30:00 Outpatient RYANMariluz CHÁVEZ [id number] [facility] 2022-04-07 13:40:00 2022-04-07 13:40:00 Outpatient MOHAN HELM KAYY CHÁVEZ [id number] [facility] 2022-04-06 00:00:00 2022-04-06 00:00:00 Outpatient MOHAN HELM KAYY CHÁVEZ [id number] [facility] 2022-03-30 10:30:00 2022-03-30 10:30:00 Outpatient NOMAN BAUTISTA [id number] [facility] 2022-03-26 00:00:00 2022-03-26 00:00:00 Outpatient MOHAN HELM KAYY CHÁVEZ [id number] [facility] 2022-02-15 11:05:00 2022-02-15 11:05:00 Outpatient KAYY CHÁVEZ [id number] [facility] 2022-02-15 10:15:00 2022-02-15 10:15:00 Outpatient MICKEY MCDONALD [id number] [facility] 2022-01-14 10:15:00 2022-01-14 10:15:00 Outpatient ROSITA AU [id number] [facility] 2021-12-31 11:00:00 2021-12-31 11:00:00 Outpatient SHERICE DIAMOND [id number] Kayy Sandoval 2021-12-17 11:50:00 2021-12-17 12:00:00 Office Visit Torsten Hathaway [facility] [id number] Kayy Sandoval 2021-11-29 13:00:00 2021-11-29 13:00:00 Outpatient KAYY KAYY [id number] Kayy Sandoval 2021-11-29 11:00:00 2021-11-29 11:00:00 Outpatient KAYY KAYY [id number] Kayy aSndoval 2021-11-26 15:00:00 2021-11-26 15:00:00 Outpatient KAYY KAYY [id number] Kayy Sandoval 2021-11-26 13:00:00 2021-11-26 13:00:00 Outpatient KAYY KAYY [id number] Kayy Sandoval 2021-11-26 11:30:00 2021-11-26 11:30:00 Outpatient KAYY KAYY [id number] Kayy Sandoval 2021-11-18 15:00:00 2021-11-18 15:00:00 Outpatient KAYY KAYY [id number] Kayy Sandoval 2021-11-18 13:00:00 2021-11-18 13:00:00 Outpatient KAYY KAYY [id number] Kayy Sandoval 2021-11-18 10:40:00 2021-11-18 10:40:00 Outpatient LAB47 KAYY CHÁVEZ [id number] Kayy [facility] 2021-11-12 00:00:00 2021-11-12 00:00:00 Outpatient TORSTEN HATHAWAY KAYY CHÁVEZ [id number] Kayy [facility] 2021-11-09 13:20:00 2021-11-09 13:20:00 Outpatient JOSH4 [id number]-[id number] KAYY CHÁVEZ [id number] Kayy Seybold 2021-11-09 11:00:00 2021-11-09 12:00:00 Office Visit Torsten Hathaway 1, Urology Biopsy Machine 2, Urology Procedure Room [facility] 1.2.840.114 [id number] Kayy Sandoval 2021-10-12 10:15:00 2021-10-12 11:00:00 Office Visit Rosita Au [facility] [id number] [id number] Kayy Sandoval 2021-09-29 10:45:00 2021-09-29 11:00:00 Office Visit Noman Bautista [id number] Kayy mayelin 2021-09-14 00:00:00 2021-09-14 00:00:00 Outpatient TORSTEN HATHAWAY [id number] [facility] 2021-09-14 00:00:00 2021-09-14 00:00:00 Outpatient TORSTEN HATHAWAY [id number] Kayy [facility] 2021-09-12 00:00:00 2021-09-12 00:00:00 Outpatient TORSTEN HATHAWAY [id number] Kay[facility] 2021-09-10 00:00:00 2021-09-10 00:00:00 Outpatient TORSTEN HATHAWAY [id number] Kayy [facility] 2021-09-07 11:20:00 2021-09-07 11:20:00 Outpatient LAB KAYY CHÁVEZ [id number] Kay[facility] 2021-09-07 10:15:00 2021-09-07 11:00:00 Office Visit Nan Ybarra [id number] Kayy Jaime 2021-07-27 10:10:00 2021-07-27 10:10:00 Outpatient TORSTEN HATHAWAY [id number] Kay[facility] 2021-07-13 11:00:00 2021-07-13 11:15:00 Office Visit Uli Dallas [facility] [id number] [id number] Kayy Sandoval 2021-06-24 00:00:00 2021-06-24 00:00:00 Outpatient TORSTEN HATHAWAY KAYY CHÁVEZ [id number] Kayy Sandoval 2021-06-22 12:30:00 2021-06-22 12:30:00 Outpatient LAB39 KAYY CHÁVEZ [id number] Kayy Sandoval 2021-06-22 12:25:00 2021-06-22 12:25:00 Outpatient SDLinda, [id number]-AYM KAYY CHÁVEZ [id number] Kayy Sandoval 2021-06-22 11:40:00 2021-06-22 11:50:00 Office Visit Torsten Hathaway [facility] [id number] [id number] Kayy Sandoval 2021-06-22 00:00:00 2021-06-22 00:00:00 Outpatient VOLODYMYRMOHAN KAYY CHÁVEZ [id number] Kayy Sandoval 2021-05-11 11:10:00 2021-05-11 11:10:00 Outpatient VOLODYMYR MOHAN KAYY CHÁVEZ [id number] Kayy [facility] 2021-03-31 15:00:00 2021-03-31 15:15:00 Office Visit Noman Bautista [id number] [id number] Kayy Jaime 2021-03-26 16:45:00 2021-03-26 16:45:00 Outpatient KAYY CHÁVEZ [id number] Kayy mayelin 2021-03-25 15:45:00 2021-03-25 15:45:00 Outpatient KAYY CHÁVEZ [id number] Kayy torin 2021-03-25 11:30:00 2021-03-25 11:30:00 Outpatient 39, HOLTER KAYYFLORENCE CHÁVEZ [id number] [facility] 2021-03-25 09:10:00 2021-03-25 09:10:00 Outpatient MOHAN HELM KAYY CHÁVEZ [id number] [facility] 2021-01-28 10:53:40 2021-01-28 12:08:03 [facility] [id number] Kayy [facility] 2020-12-30 00:00:00 2020-12-30 00:00:00 Outpatient NOMAN BAUTISTA KAYY CHÁVEZ [id number] Kayy [facility] 2020-12-15 00:00:00 2020-12-15 00:00:00 Outpatient NAN YBARRA KAYY CHÁVEZ [id number] Kayy [facility] 2020-12-02 15:20:00 2020-12-02 15:20:00 Outpatient RODRICK MENDEZ KAYY CHÁVEZ [id number] Kayy [facility] 2020-12-02 13:00:00 2020-12-02 13:00:00 Outpatient RODRICK MENDEZ KAYY CHÁVEZ [id number] [facility] 2018-10-17 18:26:00 2018-10-17 18:26:00 Outpatient E [facility] Results Test Description Test Time Test Comments Results Result Co mments Source Kayy Sandoval - External Notes Date/Time Note Provider Source 2023-07-03 15:56:41 [id number] mPt1/hp2BwgexAfhL anl2A97v6xFbTiUpT97B01qq/pF9906-85-26 T15:56:41 Chief [place] [id number] ZzwlWA0591-50-87Q55:58:56Nurse [id number]. [id number] for patient [id number] NoteLNNARRATIVEFormatted C-CDA narrative textMercyhealth Mercy Hospital[address] [address] [place], [place] [id number] 5033-67-49E97:58:561.2.840.028387.1.7 2.3.15|1.2.840.951878.1.13.131.2.7.2. [id number] [facility] 2023-06-23 11:56:10 sbJW+9yRB02ZxCbXRr1+ 7cPXrFixa1D9bETX7 dW56VZ6gLW4aZW/g0kELpPe6yew6353-03-52 T11:56:10 Chief ComplaintPatient presents withFollow-up6 month follow up Luz Guoectronically signed by Bhumika Perry RMA at 06/23/2023 11:59 AM ZGS13045-4Mzqci ZqtpKX0619-83-00P72:59:48Nurse NoteTXT1.2.840.954622.1.13.131.2.7.2. 291096|[id number] for patient qrzv90809-9Ifphs NoteLNNARRATIVEFormatted C-CDA narrative textMercyhealth Mercy Hospital[address] [place], [place] [id number] 1417-71-52M84:59:481.2.840.976565.1.7 2.3.15|1.2.840.647348.1.13.131.2.7.2. [id number] [facility] 2023-06-21 14:07:49 ybEXG/MuJbOoQw+GpZX4 MzfdKnCkmh8i9di+c xlLQo09sMzgfxSsOw84SpPjFRPQ7066-52-41 T14:07:49 Chief ComplaintPatient presents withEstablish CareRequesting home healthVitals:06/21/23 1402BP: (!) 174/92Side: Right ArmPosition: SITTINGCuff Size: Medium AdultPulse: 66Resp: 17Temp: 97.6 ?F (36.4 ?C)TempSrc: TympanicSpO2: 95%Height: 5' 8" (1.727 m)No other voiced complaints at this time 57321-8Mzxcf QesvPS2471-90-67D17:08:38Nurse NoteTXT1.2.840.382565.1.13.131.2.7.2. 779397|[id number] for patient wroq33277-0Argqg NoteLNNARRATIVEFormatted C-CDA narrative [facility] [facility] [id number] 5222-05-78N95:08:381.2.840.717236.1.7 2.3.15|1.2.840.908377.1.13.131.2.7.2. [id number] [facility] 2023-06-12 08:52:21 2KwJF9OxLX6MF/uqW90B KEZb8On+auXH2fws/ zX2CpdMZJYie3pYhl4XXfPglJcQ9143-66-85 T08:52:21 Chief ComplaintPatient presents withH[place] [address]-7Kbluz JyunZO7253-26-83A88:26:34Nurse NoteTXT1.2.840.331271.1.13.131.2.7.2. 051999|[id number] for patient gkvr07744-7Qfnbo NoteLNNARRATIVEFormatted C-CDA narrative text[id number] 9295-62-47W55:26:341.2.840.938994.1.7 2.3.15|1.2.840.300490.1.13.131.2.7.2. [id number] [facility] 2022-12-16 15:45:45 xe+kZ1Qpez9QfQpDq1Io wx1JLXaY6d6Hy5dSn 54K0nejDGb6dB4WRQZtJCHvltXi2887-14-96 T15:45:45 Chief Complaint Patient presents with Follow-up PSA Bhumika WALTER 49224-3Riphg LbnkGF0653-29-15I63:49:41Nurse NoteTXT1.2.840.110098.1.13.131.2.7.2. 167015|[id number] for patient fucp51368-2Jepjv NoteLN[id number] 3912-56-75M63:49:411.2.840.279005.1.7 2.3.15|1.2.840.532974.1.13.131.2.7.2. [id number] [facility] 2022-12-13 11:09:27 TAUg4BzuZGWeKl49UZqS 2qM8CbkE7yb3XFw7c gmdU11g7S683O9GT9p5qVzoU5if4101-47-02 T11:09:27 Chief Complaint Patient presents with Parkinson's Follow Up parkinson's Height: 5'8" [place] [address]-6Paexb RovtSX7905-41-93X54:12:12Nurse NoteTXT1.2.840.435694.1.13.131.2.7.2. 381199|[id number] for patient yave25949-9Xvddy NoteLNMercyhealth Mercy Hospital2727 [facility].CAVVVLNLQOHSGXRMZD4414340763HFYW 2033-34-68M97:12:121.2.840.879370.1.7 2.3.15|1.2.840.949064.1.13.131.2.7.2. [id number] [facility]
[2023-08-03 19:47] LABS: Absolute Basophils 0.1 K/uL (0-0.5); Absolute Eosinophils 0.2 K/uL (0-0.5); Absolute Lymphocytes (CBC) 1.1 K/uL (0.7-4.9); Absolute Monocytes 0.6 K/uL (0.1-1.3); Absolute Neutrophil 3.5 K/uL (1.8-8.0); Basophils % 1.3 % (0-1.3); Eosinophils % 3.3 % (0-4.4); Hematocrit 36.2 % (39.6-49.0); Hemoglobin 12.4 g/dL (13.6-17.9); Lymphocytes % 19.5 % (15.3-44.8); MCH 32.7 pg (27.0-35.0); MCHC 34.4 g/dL (32.0-36.0); MCV 95.3 fL (80-100); MPV 9.6 fL (7.6-11.3); Monocytes % 10.5 % (3.3-12.3); Neutrophils % 65.4 % (41.7-73.7); Nucleated Red Blood Cells % 0.1 % (0-0); Platelets 181 thou/uL (152-406); Red Cell Distribution Width 13.4 % (12.1-15.2)
--- NOTE | 2023-08-03 19:50 | RAD REPORT ---
EXAM DESCRIPTION: RAD - Chest Single View - 08/03/2023 7:42 pm CLINICAL HISTORY: CHEST PAIN COMPARISON: No comparisons FINDINGS: Lines: None. Lungs: Mild opacities at the left lung base . Pleural: Small left pleural effusion. Cardiac: The heart size is within normal limits. Mediastinum: Within normal limits. Bones: No acute fractures. Other: None IMPRESSION: Nonspecific small left pleural effusion and likely underlying atelectasis. The lungs are otherwise clear .
[2023-08-03 20:02] LABS: Anion Gap 8.8 mEq/L (5.0-15.0); Potassium 3.8 mEq/L (3.5-5.1); Troponin High Sensitivity 6.7 pg/mL (<58.9)
--- NOTE | 2023-08-03 21:23 | ER ---
Nurse's Notes [facility] Name: Nik Bender Jr Age: 82 yrs Sex: Male : 1940 Arrival Date: 08/03/2023 Time: 18:44 Bed 17 Private MD: Diagnosis: Essential (primary) hypertension Presentation: 08/02 18:54 Chief complaint: Patient states: OT came to house and BP was 217/123. 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 Dizziness worse than usual today, but no pain. Coronavirus screen: Vaccine status: Patient reports receiving the 2nd dose of the covid vaccine. Client denies travel out of the [place] in the last 14 days. At this time, the client does not indicate any symptoms associated with coronavirus-19. Ebola Screen: Patient denies travel to an Ebola-affected area in the 21 days before illness onset. Initial Sepsis Screen: Does the patient meet any 2 criteria? No. Patient's initial sepsis screen is negative. Does the patient have a suspected source of infection? No. Patient's initial sepsis screen is negative. Risk Assessment: Do you want to hurt yourself or someone else? Patient reports no desire to harm self or others. Onset of symptoms was August 03, 2023. 18:54 Method Of Arrival: Ambulatory ll1 18:54 Acuity: ZINA 3 ll1 Triage Assessment: 18:58 General: Appears uncomfortable, Behavior is calm, cooperative, appropriate for age. ll1 General: Reports elevated BP. Pain: Denies pain. Neuro: Reports dizziness. Historical: - Allergies: 18:53 PENICILLINS; ll1 - PMHx: 18:53 Hypertensive disorder; Parkinson's disease; prostate CA; Hypercholesterolemia; MSA; ll1 skin CA past; PVD; - Immunization history:: Adult Immunizations up to date. - Infectious Disease History:: Denies. - Social history:: Smoking status: Patient denies any tobacco usage or history of. Screenin:17 [facility] ED Fall Risk Assessment (Adult) History of falling in the last 3 months, rv including since admission No falls in past 3 months (0 pts) Score/Fall Risk Level 0 - 2 = Low Risk Oriented to surroundings, Maintained a safe environment, Educated pt \T\ family on fall prevention, incl call for assistance when getting out of bed, Assessed \T\ reinforced patient's understanding of fall precautions. Abuse screen: Denies threats or abuse. Denies injuries from another. Nutritional screening: No deficits noted. Tuberculosis screening: No symptoms or risk factors identified. Assessment: 20:17 General: Appears comfortable, Behavior is calm, cooperative. Pain: Denies pain. Neuro: rv Level of Consciousness is awake, alert, obeys commands, Oriented to person, place, time, situation. Cardiovascular: Capillary refill < 3 seconds Patient's skin is warm and dry. Respiratory: Airway is patent Respiratory effort is even, unlabored. GI: No signs and/or symptoms were reported involving the gastrointestinal system. : No signs and/or symptoms were reported regarding the genitourinary system. Derm: Skin is intact. Vital Signs: 18:54 BP 116 / 67; Pulse 65; Resp 16; Temp 97.6; Pulse Ox 96% ; Weight 76.66 kg; Height 5 ft. ll1 3 in. ; Pain 0/10; 20:30 BP 172 / 83; Pulse 58; Resp 17; Pulse Ox 98% on R/A; rv 21:08 BP 193 / 87; Pulse 58; Resp 17; Pulse Ox 98% on R/A; rv 21:59 BP 183 / 85; Pulse 57; Resp 16; Temp 98; Pulse Ox 97% on R/A; rv 18:54 Body Mass Index 29.94 (76.66 kg, 160.02 cm) ll1 18:54 Pain Scale: Adult ll1 [place] Coma Score: 21:59 Eye Response: spontaneous(4). Motor Response: obeys commands(6). Verbal Response: rv oriented(5). Total: 15. ED Course: 18:49 Patient arrived in ED. ra3 18:56 Triage completed. ll1 18:58 Noel Sanchez MD is Attending Physician. rn 18:58 Arm band placed on. ll1 19:03 Marisabel Barksdale [facility]-C [facility]. sb4 19:35 Inserted saline lock: 20 gauge in left forearm, using aseptic technique. Blood nj1 collected. 19:44 XRAY Chest (1 view) In Process Unspecified. EDMS 20:16 Corby Mcdonald, IMANI is Primary Nurse. rv 20:17 Patient has correct armband on for positive identification. Client placed on continuous rv cardiac and pulse oximetry monitoring. NIBP monitoring applied. nurse monitoring on. 20:18 No provider procedures requiring assistance completed. rv 20:28 EKG done, by technical support intern. reviewed by Marisabel Barksdale PA-C. oe 22:00 IV discontinued, intact, bleeding controlled, No redness/swelling at site. Pressure rv dressing applied. Administered Medications: No medications were administered Medication: 20:17 VIS not applicable for this client. rv Outcome: 21:22 Discharge ordered by . angie 22:00 Discharged to home via wheelchair, with family, rv 22:00 Condition: good 22:00 Discharge instructions given to patient, family, Instructed on discharge instructions, follow up and referral plans. Demonstrated understanding of instructions, follow-up care, 22:00 Patient left the ED. rv Signatures: Dispatcher [employer] EDMS Noel Sanchez MD MD rn Espinosa, Orlando oe Vicente, Ronaldo, RN RN Yajaira Hammond RN RN ll1 Marisabel Barksdale PA-C PA-C sb4 Jaco, Norma RN RN laAmber Le ra3
--- NOTE | 2023-08-03 21:23 | EDPHYS ---
Physician Documentation [facility] Name: Nik Bender Jr Age: 82 yrs Sex: Male : 1940 Arrival Date: 08/03/2023 Time: 18:44 Bed 17 Private MD: ED Physician Noel Sanchez HPI: 08/02 19:48 This 82 yrs old Male presents to ER via Ambulatory with complaints of High Blood sb4 Pressure. 23:55 Patient states that his blood pressure fluctuates greatly. He usually takes midodrine sb4 daily for low blood pressure but is also prescribed clonidine as needed for high blood pressure. States that he woke up this morning and his blood pressure was 85 systolic so he took his midodrine. Later in the day his blood pressure was in the 200s systolic and he took a clonidine and then came to the ED for further evaluation. He denies any headache, dizziness, chest pain, shortness of breath. Historical: - Allergies: 18:53 PENICILLINS; ll1 - PMHx: 18:53 Hypertensive disorder; Parkinson's disease; prostate CA; Hypercholesterolemia; MSA; ll1 skin CA past; PVD; - Immunization history:: Adult Immunizations up to date. - Infectious Disease History:: Denies. - Social history:: Smoking status: Patient denies any tobacco usage or history of. ROS: 23:55 Constitutional: Negative for fever, chills, and weight loss, sb4 23:55 All other systems are negative, Exam: 23:55 Constitutional: This is a well developed, well nourished patient who is awake, alert, sb4 and in no acute distress. Head/Face: Normocephalic, atraumatic. Eyes: Extra-ocular motions intact. Periorbital areas with no swelling, redness, or edema. ENT: Mucous membranes moist. Cardiovascular: Regular rate and rhythm with a normal S1 and S2. Respiratory: Lungs have equal breath sounds bilaterally, clear to auscultation and percussion. No rales, rhonchi or wheezes noted. No increased work of breathing, no retractions or nasal flaring. Abdomen/GI: Soft, non-tender, no distension. Skin: Warm, dry with normal turgor. Normal color with no rashes, no lesions, and no evidence of cellulitis. MS/ Extremity: Pulses equal, no cyanosis. Neurovascular intact. Full, normal range of motion. Neuro: Awake and alert, GCS 15, oriented to person, place, time, and situation. Motor strength 5/5 in all extremities. Sensory grossly intact. Vital Signs: 18:54 BP 116 / 67; Pulse 65; Resp 16; Temp 97.6; Pulse Ox 96% ; Weight 76.66 kg; Height 5 ft. ll1 3 in. ; Pain 0/10; 20:30 BP 172 / 83; Pulse 58; Resp 17; Pulse Ox 98% on R/A; rv 21:08 BP 193 / 87; Pulse 58; Resp 17; Pulse Ox 98% on R/A; rv 21:59 BP 183 / 85; Pulse 57; Resp 16; Temp 98; Pulse Ox 97% on R/A; rv 18:54 Body Mass Index 29.94 (76.66 kg, 160.02 cm) ll1 18:54 Pain Scale: Adult ll1 [place] Coma Score: 21:59 Eye Response: spontaneous(4). Motor Response: obeys commands(6). Verbal Response: rv oriented(5). Total: 15. MDM: 18:58 Patient medically screened. rn 23:55 Data reviewed: vital signs, nurses notes, lab test result(s), EKG, radiologic studies, sb4 I have discussed the patient's presentation/case with the attending Emergency Department Physician; and as a result, I will discharge patient. Counseling: I had a detailed discussion with the patient and/or guardian regarding the historical points, exam findings, and any diagnostic results supporting the discharge/admit diagnosis, lab results, radiology results, the need for outpatient follow up, a program paraprofessional, to return to the emergency department if symptoms worsen or persist or if there are any questions or concerns that arise at home. 08/02 19:18 Order name: Basic Metabolic Panel; Complete Time: 20:04 sb4 08/02 19:18 Order name: CBC with Diff; Complete Time: 19:50 sb4 08/02 19:18 Order name: Troponin HS; Complete Time: 20:04 sb4 08/02 19:18 Order name: XRAY Chest (1 view); Complete Time: 19:53 sb4 08/02 19:18 Order name: Cardiac monitoring; Complete Time: 20:18 sb4 08/02 19:18 Order name: EKG - Nurse/Tech; Complete Time: 20:18 sb4 08/02 19:18 Order name: IV Saline Lock; Complete Time: 19:36 sb4 08/02 19:18 Order name: Labs collected and sent; Complete Time: 19:36 sb4 08/02 19:18 Order name: O2 Per Protocol; Complete Time: 20:18 sb4 08/02 19:18 Order name: O2 Sat Monitoring; Complete Time: 20:18 sb4 EC:28 Rate is 57 beats/min. Rhythm is regular, Sinus tachycardia. OH interval is normal at sb4 186 msec. QRS interval is normal at 100 msec. QT interval is prolonged at [address] changes noted. Clinical impression: Sinus bradycardia. Interpreted by me. Reviewed by me. Administered Medications: No medications were administered Disposition: 08/03 09:03 Co-signature as Attending Physician, Noel Sanchez MD I reviewed the patient's care rn provided by the Advanced Practice Provider and agree with the diagnosis and treatment plan. Disposition Summary: 08/03/23 21:22 Discharge Ordered Notes: Location: Home sb4 Problem: new sb4 Symptoms: have improved sb4 Condition: Stable sb4 Diagnosis - Essential (primary) hypertension sb4 Followup: sb4 - With: Emergency Department - When: As needed - Reason: Trouble breathing, Worsening of condition Discharge Instructions: - Discharge Summary Sheet sb4 - Hypertension, Adult sb4 - How to Take Your Blood Pressure, Btcy-fq-Xzmx sb4 Forms: - Thank You Letter sb4 - Patient Portal Instructions sb4 - Leadership Thank You Letter sb4 Signatures: Dispatcher [employer] EDNoel Kam MD MD rn Vicente, Ronaldo RN Yajaira Hoskins RN RN ll1 Marisabel Barksdale PA-C PALara sb4 Corrections: (The following items were deleted from the chart) 08/02 19:19 19:19 BASIC METABOLIC PANEL+C.LAB.BRZ ordered. EDMS EDMS 19:19 19:19 CBC+H.LAB.BRZ ordered. EDMS EDMS 19:19 19:19 Troponin High Sensitivity+C.LAB.BRZ ordered. EDMS EDMS 19:19 19:19 Chest Single View+RAD.RAD.BRZ ordered. EDMS EDMS
[2023-08-04 03:51] VITALS: BP 183/85; TEMP 98; O2SAT 97
--- NOTE | 2023-08-04 13:37 | EKG ---
Test Date: 2023-08-03 Test Time: 20:21:20 Rn Clinical Resource: COLT MEASUREMENT RESULTS: Intervals: Rate: 57 AR: 186 QRSD: 100 QT: 430 QTc: 418 [place]: P: 17 AR: 186 QRS: -22 T: 35 INTERPRETIVE STATEMENTS: Sinus bradycardia Otherwise normal ECG No previous ECG available for comparison Electronically Signed On 08-04-23 13:36:10 CDT by Eduin Grimm
== END 2023-08-03 22:00 | disposition home or self-care (01) ==
LOC: ER 18:44
DX: I10 Essential (primary) hypertension (principal); G20.A1 Parkinson's disease without dyskinesia, without mention of fluctuations; Z88.0 Allergy status to penicillin
CPT/HCPCS: 36415; 71045; 80048; 84484; 85025; 93005; 99284